=== PATIENT | female | born 1950 | race Caucasian/White ===

== ENCOUNTER 2017-09-17 07:45 | Day surgery (SDC) | payer MEDICARE, BC ==
[2017-09-17] MEDS ORDERED: PROPOFOL 40 ML (11:10)
== END 2017-09-17 10:33 | disposition home or self-care (01) ==
LOC: GIL 07:45
DX: K25.9 Gastric ulcer, unspecified as acute or chronic, without hemorrhage or perforation (principal); K29.30 Chronic superficial gastritis without bleeding; K63.5 Polyp of colon; K57.30 Diverticulosis of large intestine without perforation or abscess without bleeding; K64.8 Other hemorrhoids; E11.9 Type 2 diabetes mellitus without complications; J44.9 Chronic obstructive pulmonary disease, unspecified; I10 Essential (primary) hypertension
CPT/HCPCS: 43239; 82962; 88305; 88312

== ENCOUNTER 2018-04-06 11:17 | Emergency (ER) | payer MEDICARE, BC | END 2018-04-06 14:14 | disposition home or self-care (01) | LOC: FTE 11:17 | DX: M79.604 Pain in right leg (principal); M79.605 Pain in left leg; R40.2412 Glasgow coma scale score 13-15, at arrival to emergency department; J44.9 Chronic obstructive pulmonary disease, unspecified; I10 Essential (primary) hypertension; Z79.84 Long term (current) use of oral hypoglycemic drugs; Z87.891 Personal history of nicotine dependence | CPT/HCPCS: 93970; 99284-25 ==